=== PATIENT | male | born 1950 | race Caucasian/White ===

== ENCOUNTER 2016-12-15 12:06 | Emergency (ER) | payer MEDICAID, MEDICARE ==
[~2016-12-15] VITALS: Ht 182.9 cm; Wt 90.0 kg
[2016-12-15 13:59] LABS: BLOOD UREA NITROGEN 16 mg/dL (7-18)
[2016-12-15 15:13] VITALS: BP 120/81
== END 2016-12-15 15:14 | disposition home or self-care (01) ==
LOC: ED 15:00
DX: K43.9 Ventral hernia without obstruction or gangrene (principal)
CPT/HCPCS: 36415; 80048; 81003; 82040; 85025; 99284

== ENCOUNTER 2018-01-09 13:25 | Emergency (ER) | payer MEDICAID, MEDICARE ==
[~2018-01-09] VITALS: Ht 180.3 cm; Wt 103.0 kg
[2018-01-09 15:27] LABS: BASOPHILS # (AUTO) 0.14 x10^3/uL (0-0.1); BASOPHILS % (AUTO) 1 % (0-1); EOSINOPHILS % (AUTO) 1 % (1-7); LYMPHOCYTES # (AUTO) 1.59 x10^3/uL (1-3.4); LYMPHOCYTES % (AUTO) 16 % (22-44); MD NO; MEAN CORPUSCULAR HEMOGLOBIN 33.2 pg (27.5-34.5); MEAN CORPUSCULAR HGB CONC 33.7 g/dL (33.2-36.2); MEAN CORPUSCULAR VOLUME 98.7 fL (81-97); MEAN PLATELET VOLUME 7.7 fL (7.4-10.4); MONOCYTES # (AUTO) 0.51 x10^3/uL (0.2-0.8); MONOCYTES % (AUTO) 5 % (2-9); NEUTROPHILS # (AUTO) 7.38 x10^3/uL (1.8-6.8); NEUTROPHILS % (AUTO) 76 % (42-75); PLATELET COUNT 266 x10^3/uL (130-400); RED BLOOD COUNT 4.02 x10^6/uL (4.38-5.82); RED CELL DISTRIBUTION WIDTH 16.2 % (9.4-14.8)
[2018-01-09 15:31] LABS: ANION GAP 3 mmol/L (5-15); CHLORIDE 105 mmol/L (98-107); CREATININE 1.26 mg/dL (0.7-1.3)
[2018-01-09 16:02] VITALS: BP 127/88
[2018-01-09] MEDS ORDERED: OMNIPAQUE 350 MG/ML, 100ML BOTTLE ONE (17:53)
== END 2018-01-09 18:22 | disposition home or self-care (01) ==
LOC: ED 17:50
DX: R22.0 Localized swelling, mass and lump, head (principal)
CPT/HCPCS: 36415; 70491; 80048; 85025; 99285; Q9967

== ENCOUNTER 2018-04-24 23:38 | Emergency (ER) | payer MEDICARE ==
[~2018-04-24] VITALS: Ht 182.9 cm; Wt 90.0 kg
[2018-04-24 23:39] VITALS: BP 116/84
== END 2018-04-25 00:41 | disposition home or self-care (01) ==
LOC: ED 23:59
DX: S09.93XA Unspecified injury of face, initial encounter (principal); C44.90 Unspecified malignant neoplasm of skin, unspecified; W01.0XXA Fall on same level from slipping, tripping and stumbling without subsequent striking against object, initial encounter; Y93.89 Activity, other specified; Y92.410 Unspecified street and highway as the place of occurrence of the external cause; Y99.8 Other external cause status
CPT/HCPCS: 99283